=== PATIENT | male | born 1960 | race Caucasian/White ===

== ENCOUNTER 2018-01-24 23:12 | Inpatient (IN) | payer SELFPAY ==
[~2018-01-24] VITALS: Ht 185.4 cm; Wt 81.6 kg
[2018-01-24 23:19] VITALS: Ht 185.4 cm; Wt 81.6 kg
[2018-01-25 01:22] LABS: BASOPHIL % 0.9 % (0-2); PLATELET COUNT 383 x10^3mcL (130-400)
[2018-01-25 01:23] LABS: RED CELL DISTRIBUTION WIDTH 15.5 % (11.5-14.5)
[2018-01-25 01:32] LABS: CALCIUM 8.8 mg/dL (8.5-10.1); CARBON DIOXIDE 28.6 mmol/L (21-32); CHLORIDE SERUM 102 mmol/L (98-107); CREATININE SERUM 0.9 mg/dL (0.7-1.3); GFR1 > 60 mL/min; GLUCOSE SERUM 170 mg/dL (74-106); SODIUM SERUM 137 mmol/L (136-145)
[2018-01-25 01:37] LABS: ALBUMIN 3.6 g/dL (3.4-5.0); ALKALINE PHOSPHATASE 55 U/L (46-116); ALT/SGPT 13 U/L (16-63); AST/SGOT 18 U/L (15-37); BILIRUBIN TOTAL 0.28 mg/dL (0.20-1.00); TOTAL PROTEIN, SERUM 7.1 g/dL (6.4-8.2)
[2018-01-25] MEDS ORDERED: METFORMIN HYDR500 M1 (03:44)
[2018-01-25] MEDS ORDERED: COUMADIN5 MG PO (03:44)
[2018-01-25] MEDS ORDERED: EPZICOM1 TAB (03:44)
[2018-01-25 04:28] LABS: CHOLESTEROL/HDL RATIO 3.7; PHOSPHOROUS 3.5 mg/dL (2.5-4.9)
[2018-01-25 04:33] LABS: T3 TOTAL 0.97 ng/mL
[2018-01-25 04:37] LABS: FREE T4 0.85 ng/dL (0.76-1.46); FREE THYROXINE INDEX 1.7 ug/dL (1.4-4.5); T4(THYROXINE) 5.4 ug/dL (4.7-13.3)
[2018-01-25 04:51] VITALS: BP 137/82
[2018-01-25 06:12] VITALS: BP 121/61
[2018-01-25 06:37] LABS: PLATELET COUNT 397 x10^3mcL (130-400)
[2018-01-25 06:48] LABS: CALCIUM 8.6 mg/dL (8.5-10.1); CARBON DIOXIDE 27.9 mmol/L (21-32); CHLORIDE SERUM 103 mmol/L (98-107); CREATININE SERUM 0.6 mg/dL (0.7-1.3); GFR1 > 60 mL/min; GLUCOSE SERUM 126 mg/dL (74-106); POTASSIUM SERUM 4.6 mmol/L (3.5-5.1); SODIUM SERUM 138 mmol/L (136-145)
[2018-01-25 06:51] LABS: IRON 51 ug/dL (65-170); TOTAL IRON BINDING CAPACITY 246 ug/dL (250-450)
[2018-01-25 06:54] LABS: BASOPHIL % 2.7 % (0-2); RED CELL DISTRIBUTION WIDTH 15.2 % (11.5-14.5)
[2018-01-25 08:18] LABS: RED BLOOD CELLS 3.56 M/mm3 (4.52-5.90)
[2018-01-25 09:14] VITALS: BP 146/62
[2018-01-25 13:06] VITALS: BP 132/69
[2018-01-25 18:10] VITALS: BP 115/69
[2018-01-25 20:36] VITALS: BP 114/55
[2018-01-25 21:44] LABS: microscopic required? NO
[2018-01-25 21:56] LABS: urine erythrocyte NEGATIVE (NEGATIVE)
[2018-01-25 22:03] LABS: AMPHETAMINE QUAL UR NONE DETECTED (See below)
== END 2018-01-26 01:15 | disposition left against medical advice (07) | DRG 301 ==
LOC: ED 23:12 → MU 01-25 03:05 → DU 01-25 04:05
PROVIDERS: Emergency Medicine; Family Medicine
DX: I82.412 Acute embolism and thrombosis of left femoral vein (principal); I82.432 Acute embolism and thrombosis of left popliteal vein; D64.9 Anemia, unspecified; E11.65 Type 2 diabetes mellitus with hyperglycemia; Z53.21 Procedure and treatment not carried out due to patient leaving prior to being seen by health care provider; Z79.01 Long term (current) use of anticoagulants; Z72.89 Other problems related to lifestyle; Z79.84 Long term (current) use of oral hypoglycemic drugs; Z88.8 Allergy status to other drugs, medicaments and biological substances; Z91.19 Patient's noncompliance with other medical treatment and regimen
CPT/HCPCS: 83880; 84439; J1650; J2270; J7030; Q0092; Q0162